=== PATIENT | female | born 1955 | race Caucasian/White ===

== ENCOUNTER 2016-07-29 05:24 | Inpatient (IN) | payer BC ==
--- NOTE | ~2016-07-29 | HP ---
History And Physical [address] [place]. [address] NAME: DASIA KING : 51 STATUS : ADM IN [facility]#: [id number] AGE: 61 ADM/REG DATE : 07/29/16 MR#: [id number] REPORT SERV DATE: 07/29/16 DICTATED BY: HARJIT ALVES DATE: 07/29/16 REPORT STATUS : Draft TRANSCRIBED BY: MODL DATE: 07/29/16 DATE OF ADMISSION: 07/29/2016 CHIEF COMPLAINT: This is the patient I had accepted in transfer from [place], [place], after speaking with Dr. Cervantes over there. HISTORY OF PRESENT ILLNESS: Briefly, this is a 61-year-old female, who had her tooth extraction done about a week ago and started having swelling on the right side of her face. The next day, she was started on oral clindamycin by her dentist, but subsequently she continued to have increasing swelling and induration in that side of her face. Finally the entire right side of her face and neck appeared to be red and hot, and she decided to go to the emergency room there. The patient was evaluated there at the facility and they called Dr. Blackburn of the [facility] surgeon, who wanted the patient transferred to [facility] under the care of Hospitalist Service, so he will see her in the morning. We were called to accept the patient in transfer and the patient was subsequently transferred to [facility]. Dr. Cervantes said, the CT scan of the soft tissue of the neck and head showed right submandibular abscess. The patient was given IV clindamycin before transfer. Dr. Cervantes said her she was afebrile, she was 94% on room air, heart rate of 95, and her blood pressures were stable at 143/65. At the time of my evaluation here, Mrs. King denied any chest pain, palpitations, or orthopnea. She had no cough, hemoptysis, night sweats, or weight loss. She had no fevers or chills, nausea, vomiting, diarrhea, hematemesis, hematochezia, or hematuria. No other history of recent falls or loss of consciousness. No history of recent travel or exposures other than those mentioned above. PAST MEDICAL HISTORY: Significant for history of diabetes mellitus type 2 and hyperlipidemia. SOCIAL HISTORY: She does not smoke, drink, or use recreational drugs. FAMILY HISTORY: Noncontributory. MEDICATIONS: Her medications at home were reviewed by me in the chart today and reordered by me. REVIEW OF SYSTEMS: As in history of present illness. All other systems were reviewed in detail and are quite unremarkable. PHYSICAL EXAMINATION: GENERAL: This is a pleasant 61-year-old, not in any acute distress. HEENT: The entire right side of her face and submandibular region and neck is inflamed, indurated, and very painful. She has trouble opening her mouth, swallowing, and chewing. Her neck otherwise supple with no jugular venous distention, lymphadenopathy, or thyromegaly. Her pupils are equal, reacting to light and accommodating. External ocular History And Physical [address] [address] NAME: DASIA KING : 51 STATUS : ADM IN [facility]#: [id number] AGE: 61 ADM/REG DATE : 07/29/16 MR#: [id number] REPORT SERV DATE: 07/29/16 DICTATED BY: HARJIT ALVES DATE: 07/29/16 REPORT STATUS : Draft TRANSCRIBED BY: ÁNGEL DATE: 07/29/16 muscles were intact. Membranes are moist and pink. Sclerae were nonicteric. LUNGS: Auscultation of her lungs revealed good air entry bilaterally with no wheezes, rubs, or crackles. HEART: Heart sounds were regular with no murmurs, rubs, or gallops. ABDOMEN: Soft and nontender. Bowel sounds are present. EXTREMITIES: No cyanosis, clubbing, or edema. NEUROLOGIC: Grossly intact. No focal sensory or motor deficits. Higher functions appeared intact. LABORATORY DATA: Data which accompanied the patient from the other facility were all reviewed by me in the chart today as well. IMPRESSION: 1. Right submandibular abscess. 2. Diabetes mellitus type 2. 3. Hyperlipidemia. PLAN: We will admit Mrs. King to the Hospitalist Service. After cultures are drawn, we will start her on empiric IV antibiotics. We will change clindamycin to Zosyn intravenously. We will keep her n.p.o. at this time and consult Dr. Blackburn who will be seeing her in the morning. We will start her on IV fluids for maintenance therapy. Start her on NovoLog insulin per sliding scale for blood sugar control. She will be on SCDs for DVT prophylaxis while here as well. I have discussed the above plans with the patient and family. Questions were answered, and they are agreeable to the above recommendations. Further recommendations will be after Dr. Blackburn has had a chance to see her. Hospitalist Service will be following her during her stay here. /ÁNGEL Harjit Alves M.D. / [id number] CC: Tavon Miller M.D.
--- NOTE | ~2016-07-29 | DS ---
Discharge Summary [address] [place]. [address] NAME: DASIA KING : 51 STATUS : DIS IN PAT#: [id number] AGE: 61 ADM/REG DATE : 07/29/16 MR#: [id number] REPORT SERV DATE: 08/02/16 DICTATED BY: DOMINICK MENDOZA DATE: 08/01/16 REPORT STATUS : Draft TRANSCRIBED BY: MODL DATE: 08/01/16 ADMISSION DATE: 07/29/2016 DISCHARGE DATE: 08/01/2016 CHIEF COMPLAINT ON ADMISSION: Transferred over here for oromaxillary facial evaluation. DISCHARGE DIAGNOSES: 1. Submandibular abscess with sublingual abscess status post dental procedure. 2. Uncontrolled diabetes A1c of 8.8. 3. Facial pain. HISTORY OF PRESENT ILLNESS: Please see full H and P by Dr. Harjit Ventura for details regarding initial presentation. HOSPITAL COURSE: 1. Submandibular/sublingual abscess. The patient had surgery with oromaxillary facial, Dr. Noah Blackburn, on date of admission. He performed an extraoral incision and drainage of right submandibular and sublingual space. She has been started on Zosyn and has been on that since she has been here. At this point, we will give her one dose of ceftriaxone to cover for the next 24 hours and start her on Augmentin for the next six days. She has close followup with Dr. Blackburn. Dr. Blackburn will see her in the office tomorrow for close followup. 2. Diabetes mellitus. The patient will continue her insulin pump. 3. Pain. We will send her home on tramadol p.r.n. DISCHARGE MEDICATIONS: Same as admission with the exception of tramadol p.r.n. and Augmentin 875 p.o. b.i.d. for six days starting tomorrow. Time spent on discharge was greater than 30 minutes. DNK/MODL Dominick Mendoza MD / [id number] CC: Dominick Mendoza MD
--- NOTE | ~2016-07-29 | OP ---
Record Of Operation [facility] [address] [place]. [address] NAME: DASIA KING : 51 STATUS : ADM IN [facility]#: [id number] AGE: 61 ADM/REG DATE : 07/29/16 MR#: [id number] REPORT SERV DATE: 07/30/16 DICTATED BY: KONG PASCAL DATE: 07/29/16 REPORT STATUS : Draft TRANSCRIBED BY: MODVeronica DATE: 07/29/16 DATE OF PROCEDURE: 07/29/2016 OPERATION COMPLETED: Extraoral incision and drainage of the right submandibular space and sublingual space. PREOPERATIVE DIAGNOSES: Submandibular space abscess and sublingual space abscess. POSTOPERATIVE DIAGNOSES: Submandibular space abscess and sublingual space abscess. ANESTHESIA: General anesthesia via oral endotracheal intubation. DESCRIPTION OF PROCEDURE: The patient was taken to the operating room, where successful general anesthesia was induced via oral endotracheal intubation. The patient was prepped and draped in the usual manner for an extraoral I and D procedure. We initiated the procedure by using an 18-gauge needle on a syringe and finding aspirate in both the submandibular and sublingual spaces. With this in mind, we then made an approximate 1 cm incision in the lower part of the neck to the skin. Blunt dissection was carried into the loculations of the submandibular and sublingual abscesses. Purulent drainage flowed through the wound copiously. We further explored the submental area but no purulence was found. After further decompression of the swelling, quarter-inch Tamia drains were placed in both the submandibular and sublingual space areas. They were sutured with a 2-0 Prolene to the skin. The wound was then dressed. We looked intraorally and did not feel like that there were any further teeth that could have been contributing to the abscess, therefore the procedure was considered complete. The patient was then awakened and extubated, and taken to the recovery room in satisfactory condition. KEO/ÁNGEL Kong Pascal D.D.S. / [id number] CC: Tavon Miller M.D.
[2016-07-29] MEDS ORDERED: BIAXIN250 PO (05:45)
[2016-07-29] MEDS ORDERED: ALEVE220 MG PO (05:45)
[2016-07-29] MEDS ORDERED: VITAMIN D1000 UNI1 PO (05:55)
[2016-07-29] MEDS ORDERED: FERROUS SULF325 M1 PO (05:56)
[2016-07-29] MEDS ORDERED: B12100T PO (05:56)
[2016-07-29] MEDS ORDERED: LIPITOR10 PO (05:57)
[2016-07-29] MEDS ORDERED: NEUR400 PO (05:57)
[2016-07-29] MEDS ORDERED: NOVLOGPUMP SC (05:57)
[2016-07-29] MEDS ORDERED: LEXAPRO20 PO (05:58)
[2016-07-29] MEDS ORDERED: BIOTIN5 MG PO (05:59)
[2016-07-29] MEDS ORDERED: D 5000 PO (06:03)
[2016-07-29] MEDS ORDERED: D 5000 (06:04)
[2016-07-29 08:39] LABS: BASOPHILS 0.2 %; BASOPHILS ABSOLUTE 0.01 10/3/uL (0.0-0.16); EOSINOPHILS 2.7 %; EOSINOPHILS ABSOLUTE 0.15 10/3/uL (0.0-0.53); HEMATOCRIT 29.6 % (36.0-48.0); LYMPHOCYTES 24.8 %; LYMPHOCYTES ABSOLUTE 1.39 10/3/uL (0.67-4.30); MEAN CORPUS HGB CONC 33.8 g/dL (32.0-36.0); MEAN CORPUSCULAR HEMOGLOB 31.4 pg (26.0-34.0); MEAN CORPUSCULAR VOLUME 93.1 fL (80-100); MEAN PLATELET VOLUME 9.5 fL (9.2-13.0); MONOCYTES ABSOLUTE 0.39 10/3/uL (0.21-1.20); NEUTROPHILS 65.3 %; NEUTROPHILS ABSOLUTE 3.66 10/3/uL (2.02-8.40); PLATELET COUNT 223 10/3/uL (150-400); RBC DISTRIBUTION WIDTH 12.7 % (12.0-16.0); RED CELL COUNT 3.18 10/6/uL (4.0-5.6); WHITE BLOOD CELLS 5.6 10/3/uL (4.5-10.5)
[2016-07-29 08:40] LABS: MANUAL DIFF NO %
[2016-07-29 08:56] LABS: A/G RATIO 0.8 (0.7-1.9); ALKALINE PHOSPHATASE 107 U/L (45-117); BUN (BLOOD UREA NITROGEN) 19 MG/DL (6-23); CALCIUM, SERUM 8.6 MG/DL (8.5-10.4); CHLORIDE, SERUM 105 MMOL/L (96-112); CO2 (CARBON DIOXIDE) 28 MMOL/L (24-34); CREATININE 1.34 MG/DL (0.55-1.02); GFR AFRICAN AMERICAN 49 ML/MIN (>=60); GFR NON AFRICAN AMERICAN 42 ML/MIN (>=60); GLOBULIN 3.8 G/DL (2.5-4.1); GLUCOSE, SERUM 82 MG/DL (60-99); PHOSPHORUS, SERUM 4.2 MG/DL (2.5-4.5); POTASSIUM, SERUM 4.3 MMOL/L (3.5-5.3); SGOT(AST) 20 U/L (5-40); SGPT(ALT) 15 U/L (5-65); SODIUM, SERUM 141 MMOL/L (135-148); TOTAL BILIRUBIN 1.1 MG/DL (0-1.2); TOTAL PROTEIN 6.8 G/DL (6.0-8.5)
[2016-07-31 06:37] LABS: CALCIUM, SERUM 8.3 MG/DL (8.5-10.4); CHLORIDE, SERUM 108 MMOL/L (96-112); CO2 (CARBON DIOXIDE) 28 MMOL/L (24-34); GFR AFRICAN AMERICAN 69 ML/MIN (>=60); GFR NON AFRICAN AMERICAN 60 ML/MIN (>=60); GLUCOSE, SERUM 81 MG/DL (60-99); POTASSIUM, SERUM 4.4 MMOL/L (3.5-5.3); SODIUM, SERUM 143 MMOL/L (135-148)
[2016-07-31 06:38] LABS: BUN (BLOOD UREA NITROGEN) 6 MG/DL (6-23)
[2016-08-01] MEDS ORDERED: AUG875 PO (14:29)
[2016-08-01] MEDS ORDERED: ULTRAM50 PO (14:30)
== END 2016-08-01 15:37 | disposition home or self-care (01) | DRG 158 ==
LOC: 4SO 05:24
PROVIDERS: Internal Medicine; Internal Medicine Pulmonary Disease; Oral & Maxillofacial Surgery
PROC: 0W950ZX Drainage of Lower Jaw, Open Approach, Diagnostic (ICD-10-PCS; principal; 2016-07-29 12:45)
DX: K12.2 Cellulitis and abscess of mouth (principal); L02.11 Cutaneous abscess of neck; E11.9 Type 2 diabetes mellitus without complications; E78.5 Hyperlipidemia, unspecified; D64.9 Anemia, unspecified; I44.7 Left bundle-branch block, unspecified; Z79.4 Long term (current) use of insulin; Z96.41 Presence of insulin pump (external) (internal)
CPT/HCPCS: 80048; 80053; 82962; 83036; 83605; 83735; 84100; 85025; 87015; 87040; 87070; 87075; 87102; 87116; 87205; 93005; A9270-GY; J0330; J1170; J2250; J2370; J2405; J2543; J2550; J3010